=== PATIENT | female | born 1955 | race Caucasian/White ===

== ENCOUNTER 2018-11-09 11:11 | Emergency (ER) | payer SELFPAY ==
[~2018-11-09] VITALS: Ht 248.9 cm; Wt 47.0 kg
[~2018-11-09 11:11] MED LIST: GABA300C PO; ONDA4TAB6 PO
[2018-11-09] MEDS ORDERED: normal saline 1000ML IV soln IVB ONE ×2 (12:25→13:20)
[2018-11-09] MEDS ORDERED: thiamine 100mg tablet PO ONE (12:25)
[2018-11-09 12:53] LABS: BASOPHILS # (AUTO) 0.1 X10'3 (0-0.2); BASOPHILS % (AUTO) 0.6 % (0-1); EOSINOPHILS % (AUTO) 0.4 % (0-6); HEMATOCRIT 39.2 % (35.0-45.0); HEMOGLOBIN 13.1 g/dl (12.0-16.0); LYMPHOCYTES % (AUTO) 36.5 % (21-51); MEAN CORPUSCULAR HEMOGLOBIN 29.8 PG (27.0-31.0); MEAN CORPUSCULAR HGB CONC 33.4 g/dL (33.0-36.5); MEAN CORPUSCULAR VOLUME 89.1 FL (78-98); MEAN PLATELET VOLUME 6.5 FL (7.4-10.4); MONOCYTES # (AUTO) 0.5 X10'3 (0-0.9); MONOCYTES % (AUTO) 5.6 % (2-12); NEUTROPHILS # (AUTO) 4.7 X10'3 (1.8-7.7); NEUTROPHILS % (AUTO) 56.9 % (42-75); PLATELET COUNT 406 X10'3 (140-440); RED CELL DISTRIBUTION WIDTH 14.8 % (11.5-14.5); WHITE BLOOD COUNT 8.3 X10'3 (4.5-11.0)
[2018-11-09 12:58] LABS: ALANINE AMINOTRANSFERASE 22 U/L (12-78); ALBUMIN 3.5 G/DL (3.4-5.0); ALKALINE PHOSPHATASE 87 IU/L (46-116); ANION GAP 11 (8-16); ASPARTATE AMINO TRANSFERASE 16 U/L (10-37); BILIRUBIN,TOTAL 0.4 MG/DL (0.1-1.0); BLOOD UREA NITROGEN 23 MG/DL (7-18); BUN/CREATININE RATIO 28.4 (6.6-38.0); CALCIUM 8.4 MG/DL (8.5-10.1); CHLORIDE 105 MMOL/L (99-107); CREATININE 0.81 MG/DL (0.40-0.90); GLUCOSE 106 MG/DL (70-104); POTASSIUM 3.6 MMOL/L (3.5-5.1); SODIUM 143 MMOL/L (135-145); TOTAL CARBON DIOXIDE 27.2 MMOL/L (24-32); eGFR 71 ML/MIN
[2018-11-09 13:00] LABS: LIPASE 322 U/L (73-393); MAGNESIUM 2.3 MG/DL (1.5-2.4)
[2018-11-09 13:02] LABS: ETHANOL 0.328 GM/DL (0.0-0.010)
[2018-11-09 13:56] VITALS: BP 141/85
== END 2018-11-09 14:48 | disposition home or self-care (01) ==
LOC: ER 11:12
DX: F10.129 Alcohol abuse with intoxication, unspecified (principal); Z86.69 Personal history of other diseases of the nervous system and sense organs; Z56.0 Unemployment, unspecified; Z88.2 Allergy status to sulfonamides; Z79.899 Other long term (current) drug therapy; Y90.0 Blood alcohol level of less than 20 mg/100 ml
CPT/HCPCS: 36415; 80053; 80320; 83690; 83735; 85025; 99283; J7030

== ENCOUNTER 2018-12-04 20:52 | Emergency (ER) | payer MEDICAID, OTHER ==
[~2018-12-04] VITALS: Ht 157.5 cm; Wt 47.7 kg
[2018-12-04 22:10] VITALS: BP 105/64
--- NOTE | 2018-12-05 | NUR ---
Called Dmitri at [phone] and spoke to intake. He is going to call his hot wound spring production supervisor and get back with me.
--- NOTE | 2018-12-05 00:04 | NUR ---
Dmitri called back, she will have to go over there at 8 a.m. and fill out an application with the food service coordinator.
--- NOTE | 2018-12-05 00:25 | NUR ---
I called the [facility]. They said [facility].
--- NOTE | 2018-12-05 00:31 | NUR ---
Pt wants to get her stuff from [facility]. Her wallet and shoes. They do not answer their phone. [employer] called, and they do not provide the service of article retrieval. Pt had wanted to get her wallet and go to a hotel. She was told that she has a place to go, and that we could taxi her to the [facility]. She refused. She refused a taxi cab anywhere. She walked out of the ER. Chauncey forcer maker is aware of situation as is rest of staff. We all tried to convince her that this was a wonderful option, but she just refuses.
--- NOTE | 2018-12-05 00:32 | NUR ---
PT AMBULATED WITH STEADY GAIT TO THE END OF THE WORKMAN OUTSIDE OF RM 1 AND IS REQUESTING TO LEAVE. ADVISED PT THAT WE WERE WORKING ON GETTING HER A TAX[facility] TO [facility] FOR THE [facility]. SHE STATES SHE DOESN'T WANT TO GO TO [facility] AND WANTS TO RETURN TO [facility] TO GET HER STUFF. PT OFFERED A TAXI TO THE [facility] BUT STATES "I DON'T WANT TO WAIT, I AM GOING TO WALK" - PT ADVISED WE HAVE NO CONTROL OVER HOW LONG IT TAKES TO GET A TAXI. PRIOR TO PT LEAVING WE ALSO CONTACTED [facility] TO SEE IF AN OFFICER COULD ASSIST PT IN GETTING HER BELONGINGS FROM [facility] BUT THEY STATED THAT WAS NOT A SERVICE THEY PROVIDE.
== END 2018-12-05 00:35 | disposition home or self-care (01) ==
LOC: ER 20:52
DX: F10.129 Alcohol abuse with intoxication, unspecified (principal); Z86.69 Personal history of other diseases of the nervous system and sense organs; Z56.0 Unemployment, unspecified; Z88.2 Allergy status to sulfonamides; Z59.0 Homelessness; Z79.899 Other long term (current) drug therapy; Y90.9 Presence of alcohol in blood, level not specified
CPT/HCPCS: 99284

== ENCOUNTER 2019-01-02 10:22 | Emergency (ER) | payer MEDICAID, OTHER ==
[~2019-01-02] VITALS: Ht 157.5 cm; Wt 51.1 kg
[2019-01-02] MEDS ORDERED: LORazepam 1 MG tablet PO ONE (11:35)
[2019-01-02 11:51] LABS: BASOPHILS # (AUTO) 0.1 X10'3 (0-0.2); BASOPHILS % (AUTO) 0.7 % (0-1); EOSINOPHILS % (AUTO) 0.2 % (0-6); HEMATOCRIT 41.6 % (35.0-45.0); HEMOGLOBIN 13.9 g/dl (12.0-16.0); LYMPHOCYTES # (AUTO) 2.6 X10'3 (1.1-4.8); LYMPHOCYTES % (AUTO) 23.9 % (21-51); MEAN CORPUSCULAR HEMOGLOBIN 29.8 PG (27.0-31.0); MEAN CORPUSCULAR HGB CONC 33.4 g/dL (33.0-36.5); MEAN CORPUSCULAR VOLUME 89.2 FL (78-98); MEAN PLATELET VOLUME 6.5 FL (7.4-10.4); MONOCYTES # (AUTO) 0.5 X10'3 (0-0.9); MONOCYTES % (AUTO) 4.5 % (2-12); NEUTROPHILS # (AUTO) 7.8 X10'3 (1.8-7.7); NEUTROPHILS % (AUTO) 70.7 % (42-75); PLATELET COUNT 361 X10'3 (140-440); RED BLOOD COUNT 4.66 X10'6 (4.20-5.60); RED CELL DISTRIBUTION WIDTH 14.7 % (11.5-14.5); WHITE BLOOD COUNT 11.1 X10'3 (4.5-11.0)
[2019-01-02 12:02] LABS: CLARITY,URINE CLEAR (Clear); COLOR,URINE STRAW (Yellow); GLUCOSE, URINE NEGATIVE (Neg); KETONES,URINE NEGATIVE (Neg); LEUKOCYTE ESTERASE ,URINE NEGATIVE (Neg); NITRITES, URINE NEGATIVE (Neg); OCCULT BLOOD,URINE SMALL (Neg); PROTEIN,URINE NEGATIVE (Neg); UA COLLECTION TYPE CLN CATCH MIDSTREAM; URINE AMPHETAMINE SCREEN NEGATIVE (Neg); URINE BARBITUATE SCREEN NEGATIVE (Neg); URINE BENZODIAZEPINES SCREEN NEGATIVE (Neg); URINE CANNABINOID SCREEN NEGATIVE (Neg); URINE COCAINE SCREEN NEGATIVE (Neg); URINE METHADONE SCREEN NEGATIVE (Neg); URINE OPIATE SCREEN NEGATIVE (Neg); URINE PHENCYCLIDINE SCREEN NEGATIVE (Neg); UROBILINOGEN,URINE 0.2 E.U/dL (0.2-1.0)
[2019-01-02 12:06] LABS: ALANINE AMINOTRANSFERASE 22 U/L (12-78); ALBUMIN 3.7 G/DL (3.4-5.0); ALKALINE PHOSPHATASE 95 IU/L (46-116); ANION GAP 12 (8-16); ASPARTATE AMINO TRANSFERASE 23 U/L (10-37); BILIRUBIN,TOTAL 0.8 MG/DL (0.1-1.0); BLOOD UREA NITROGEN 18 MG/DL (7-18); BUN/CREATININE RATIO 28.6 (6.6-38.0); CALCIUM 8.2 MG/DL (8.5-10.1); CHLORIDE 104 MMOL/L (99-107); CREATININE 0.63 MG/DL (0.40-0.90); GLUCOSE 92 MG/DL (70-104); POTASSIUM 4.1 MMOL/L (3.5-5.1); SODIUM 143 MMOL/L (135-145); TOTAL CARBON DIOXIDE 26.6 MMOL/L (24-32); TOTAL PROTEIN 7.4 G/DL (6.4-8.2); eGFR > 90 ML/MIN
[2019-01-02 12:08] LABS: SQUAMOUS EPITHELIAL CELL,UR FEW /LPF (FEW)
[2019-01-02 12:09] LABS: TRANSITIONAL EPI CELLS,URINE FEW /HPF; YEAST FEW /HPF (NEGATIVE)
[2019-01-02 12:12] LABS: WBC,URINE 0-4 /HPF (0-4)
--- NOTE | 2019-01-02 12:17 | NUR ---
BREAKING PRIMARY RN, PT IS GIVING URINE SAMPLE, NO AGITATION OBSERVED
[2019-01-02 12:24] LABS: ETHANOL 0.324 GM/DL (0.0-0.010)
[2019-01-02 12:26] LABS: BACTERIA,URINE FEW /HPF (Neg)
[2019-01-02] MEDS ORDERED: OMEP20TA23 PO (13:11)
[2019-01-02] MEDS ORDERED: LORazepam 1 MG tablet PO PRN (13:50)
--- NOTE | 2019-01-02 14:00 | NUR ---
PACKET FAXED [facility]
--- NOTE | 2019-01-02 17:11 | NUR ---
PT C/O ACID REFLUX, NORMALLY TAKES OMPEPROZOLE, COMPLETE MEDICATION LIST AND GET IT SIGNED BY DR QUAN AND FAX IN TO PHARMACY.
[2019-01-02] MEDS: pantoprazole 40mg Tablet.DR PO SCH (17:56)
[2019-01-02] MEDS ORDERED: mag hydrox/Alum hydrox/simeth 30ml oral suspension PO ONE (19:45)
--- NOTE | 2019-01-02 20:00 | NUR ---
One to one with the patient to assess for severity of depressive symptoms and self harm risk. She stated that she is here because earlier in the day when she was very intoxicated she was having suicidal thoughts to jump into the [place] because she had no funds and was [facility] days ago. She stated she was there for approximately one month but started drinking. She is from the [facility] and came to the [facility] to stay with her sister but she started drinking while at her sister's home and was kicked out. From her sister's house she went to the sober living placement. She is on probation. She has not been following up with her mandated DUI classes. She has had a totol of 4 DUIs and the 4th one was a felony. She has not worker for almost two years. She is in 46 thousand dollars in credit card debt and is trying to file for bankruptsy. She has never had a suicide attempt. She is not seen psychiatrically in the community. She has does not have suicidal thoughts when she is sober. She is calm and cooperative at this time. Reviewed with the patient the plan of care and she was made aware that she will be evaluated by [facility] in the morning.
--- NOTE | 2019-01-02 22:45 | NUR ---
The patient appears to be sleeping
--- NOTE | 2019-01-03 00:11 | NUR ---
The patient appears to be sleeping
--- NOTE | 2019-01-03 04:42 | NUR ---
The patient appears to have been sleeping well during the nights. Shse was up at approximately 0300 to use the bathroom but then went right back to bed.
[2019-01-03 05:40] VITALS: BP 142/89
--- NOTE | 2019-01-03 07:00 | NUR ---
Received pt asleep in bed without complaints.
[2019-01-03] MEDS ORDERED: pantoprazole 40mg Tablet.DR PO SCH (07:30)
[2019-01-03] MEDS: pantoprazole 40mg Tablet.DR PO SCH (07:32)
--- NOTE | 2019-01-03 09:00 | NUR ---
Pt resting without complaints.
--- NOTE | 2019-01-03 10:12 | NUR ---
Pt up for breakfast, denies S.I. and states she would like to go home today and relays future thinking. Pt evaluated by [facility].
== END 2019-01-03 10:45 ==
LOC: ER 10:23
DX: S00.83XA Contusion of other part of head, initial encounter (principal); F10.929 Alcohol use, unspecified with intoxication, unspecified; R45.851 Suicidal ideations; Z56.0 Unemployment, unspecified; Z88.2 Allergy status to sulfonamides; Z79.899 Other long term (current) drug therapy; W01.0XXA Fall on same level from slipping, tripping and stumbling without subsequent striking against object, initial encounter; Y93.89 Activity, other specified; Y92.89 Other specified places as the place of occurrence of the external cause; Y99.9 Unspecified external cause status; Y90.9 Presence of alcohol in blood, level not specified
CPT/HCPCS: 36415; 70450; 70486; 80053; 80305; 80320; 81001; 84443; 85025; 99284

== ENCOUNTER 2019-01-16 12:06 | Emergency (ER) | payer MEDICAID, OTHER ==
[~2019-01-16] VITALS: Ht 162.6 cm; Wt 52.3 kg
[~2019-01-16 12:06] MED LIST changes: -GABA300C PO; +OMEP20TA23 PO; -ONDA4TAB6 PO
[2019-01-16 12:14] VITALS: BP 130/85
== END 2019-01-16 13:10 | disposition home or self-care (01) ==
LOC: ER 12:07
DX: F10.129 Alcohol abuse with intoxication, unspecified (principal); Z56.0 Unemployment, unspecified; Z88.2 Allergy status to sulfonamides; Z79.899 Other long term (current) drug therapy; Y90.9 Presence of alcohol in blood, level not specified
CPT/HCPCS: 99284